=== PATIENT | male | born 1970 | race African-American/Black ===

== ENCOUNTER 2019-07-06 18:28 | Emergency (ER) | payer SELFPAY ==
[~2019-07-06] VITALS: Ht 177.8 cm; Wt 96.3 kg
[2019-07-06 19:04] VITALS: BP 165/116
[2019-07-06] MEDS ORDERED: IBUP-1007 PO (19:12)
[2019-07-06] MEDS ORDERED: METH4TAB2 PO (19:12)
[2019-07-06] MEDS ORDERED: HYDR-3164 PO (19:12)
--- NOTE | 2019-07-06 19:12 | PHYS DOC ---
General Adult EDM: Chief Complaint: SHOUDLER HPI: HPI: Patient is a 48 year old male who presents with states for the last 2 days he started having right arm pain that goes from his shoulder down to into his hands to finger 3rd 4th and 5th. He states that sharp shooting and at times throbbing. He states he does sleep with that arm up and on that arm often. He denies any injury. He states is worse with movement. He denies numbness or tingling, coolness of the extremity, color change of the extremity, swelling. Patient rates his pain a 4/10 just sitting. Patient states it rates a 9 out of 10 when moving the arm. Denies any decrease in strength in the extremity. Review of Systems: Review of Systems: Musculoskeletal: Right arm pain. Denies back pain or joint pain. [] Heart Score: Risk Factors: Risk Factors: DM, Current or recent (<one month) smoker, HTN, HLP, family history of CAD, obesity. Risk Scores: Score 0 - 3: 2.5% MACE over next 6 weeks - Discharge Home Score 4 - 6: 20.3% MACE over next 6 weeks - Admit for Clinical Observation Score 7 - 10: 72.7% MACE over next 6 weeks - Early Invasive Strategies Allergies: Allergies: Allergies Coded Allergies Type Severity Reaction Last Updated Verified doxycycline Allergy Unknown 07/06/19 Yes Physical Exam: PE: Constitutional: Well developed, well nourished, no acute distress, non-toxic appearance. [] HENT: Normocephalic, atraumatic, bilateral external ears normal, oropharynx moist, no oral exudates, nose normal. [] Eyes: PERRLA, EOMI, conjunctiva normal, no discharge. [] Neck: Normal range of motion, no tenderness, supple, no stridor. [] Cardiovascular:Heart rate regular rhythm, no murmur [] Lungs & Thorax: Bilateral breath sounds clear to auscultation [] Abdomen: Bowel sounds normal, soft, no tenderness, no masses, no pulsatile masses. [] Skin: Warm, dry, no erythema, no rash. [] Back: No tenderness, no CVA tenderness. [] Extremities: Right anterior shoulder tenderness, no cyanosis, no clubbing, ROM intact, no edema. [] Neurologic: Alert and oriented X 3, normal motor function, normal sensory function, no focal deficits noted. [] Psychologic: Affect normal, judgement normal, mood normal. [] EKG: EKG: [] Radiology/Procedures: Radiology/Procedures: [] Course & Med Decision Making: Course & Med Decision Making Pertinent Labs and Imaging studies reviewed. (See chart for details) Skin pink warm and dry. No unilateral swelling. Full strength and range of motion all the joints of the right upper extremity. Patient states it does hurt to lift at the shoulder. No swelling of any joints. No deformity of any joints. No laxity of any joints. Can make a full fist and wiggle all of his fingers. Radial pulse strong and present. Skin is pink warm and dry. Full sensations intact. Patient likely has cervical radiculopathy. [] Dragon Disclaimer: Dragon Disclaimer: This electronic medical record was generated, in whole or in part, using a voice recognition dictation system. Departure Departure Impression: Primary Impression: Cervical radiculopathy Disposition: HOME, SELF-CARE Condition: STABLE Patient Instructions: Cervical Radiculopathy, [place] Additional Instructions: Follow-up with a primary care provider as needed. Take medications as prescribed and with food. Do not operate heavy machinery or drink alcohol with pain medications. So try ice and heat to help with pain. Also try [id number] lidocaine patches for aggravated nerves. Scripts Ibuprofen (IBUPROFEN) 600 Mg Tablet 600 MG PO PRN Q6HRS PRN for INFLAMMATION, #20 TAB Prov: BETSY HILLS [employer] 07/06/19 Hydrocodone/Apap 5-325 (NORCO 5-325 TABLET) 1 Each Tablet 1 TAB PO PRN Q6HRS PRN for PAIN, #10 TAB 0 Refills Prov: BETSY HILLS [employer] 07/06/19 Methylprednisolone (MEDROL) 4 Mg Tab.ds.pk 1 PKG PO UD, #1 PKG Prov: BETSY HILLS [employer] 07/06/19 BETSY HILLS [employer] July 06, 2019 19:12
== END 2019-07-06 19:20 | disposition home or self-care (01) ==
LOC: ER 18:28
DX: M54.12 Radiculopathy, cervical region (principal); Z88.1 Allergy status to other antibiotic agents
CPT/HCPCS: 99283